=== PATIENT | female | born 1960 | race Caucasian/White ===

== ENCOUNTER 2016-12-28 15:12 | Emergency (ER) | payer BC ==
--- NOTE | 2016-12-28 15:14 | UC ---
Cardiac HPI - HPI Summary HPI Summary: 56 YEAR OLD FEMALE PRESENTS WITH COMPLAINS OF LEFT SIDED DEEP CHEST PAIN. - History of Current Complaint Stated Complaint: CHEST PAIN Time Seen by Provider: 12/28/16 15:13 Hx Obtained From: Patient Onset/Duration: Sudden Onset Initial Severity: Moderate Current Severity: Moderate Chest Pain Location: Left Anterior Aggravating: Rest - Allergy/Home Medications Allergies/Adverse Reactions: Allergies Allergy/AdvReac Type Severity Reaction Status Date / Time Penicillins Allergy Rash And Verified 12/28/16 15:29 Itching Sulfamethoxazole Allergy Rash And Verified 12/28/16 15:28 w/Trimethoprim Itching [From Bactrim] Home Medications: Home Medications NK [No Home Medications Reported] 12/28/16 [History Confirmed 12/28/16] PMH/Surg Hx/FS Hx/Imm Hx Previously Healthy: Yes - Surgical History Surgical History: Yes Surgery Procedure, Year, and Place: EYE SURGERY A CHILD; [facility] - Family History Known Family History: Positive: None Review of Systems Constitutional: Negative Skin: Negative Eyes: Negative ENT: Negative Respiratory: Negative Cardiovascular: Chest Pain Gastrointestinal: Negative Genitourinary: Negative Motor: Negative Neurovascular: Negative Musculoskeletal: Negative Neurological: Negative Psychological: Negative All Other Systems Reviewed And Are Negative: Yes Physical Exam Triage Information Reviewed: Yes Eye Exam: Normal ENT Exam: Normal Dental Exam: Normal Neck exam: Normal Neck: Positive: 1 Respiratory Exam: Normal Cardiovascular Exam: Normal Abdominal Exam: Normal Musculoskeletal Exam: Normal Neurological Exam: Normal Psychological Exam: Normal Skin Exam: Normal - Clinical Impression Provider Diagnoses: LEFT SIDED CHEST PAIN Discharge - Discharge Plan Condition: Stable Disposition: AGAINST MEDICAL ADVICE Referrals: Mono Beckett MD [Primary Care Provider] -
[2016-12-28] MEDS ORDERED: Aspirin Low Dose CHEW TAB* 81 MG PO ONE (15:21)
[2016-12-28 15:33] VITALS: BP 139/78
== END 2016-12-28 15:43 | disposition left against medical advice (07) ==
LOC: UCEAST 15:12
DX: R07.9 Chest pain, unspecified (principal); Z88.3 Allergy status to other anti-infective agents; Z88.0 Allergy status to penicillin
CPT/HCPCS: 93005; 99212; A9270-GY; G0463

== ENCOUNTER 2016-12-28 16:18 | Emergency (ER) | payer BC ==
[2016-12-28] MEDS ORDERED: NS 0.9% 1000 ML* 1,000 ML IV SCH (18:00)
--- NOTE | 2016-12-28 18:21 | RAD ---
Indication: Chest pain. Single frontal view of the chest performed at 1804 hours was reviewed. No prior study is available for comparison. No mediastinal shift is noted. Heart is of normal size and configuration. Lung holliday appear clear. IMPRESSION: NO ACTIVE CARDIOPULMONARY DISEASE IS NOTED.
[2016-12-28 18:29] LABS: Hematocrit 38 % (35-47); Hemoglobin 12.6 g/dl (12.0-16.0); Mean Corpuscular HGB Conc 33 g/dl (31-36); Mean Corpuscular Hemoglobin 30 pg (27-31); Mean Corpuscular Volume 90 fL (80-97); Mean Platelet Volume 8 um3 (7.4-10.4); Red Blood Count 4.26 10^6/ul (4.0-5.4); Red Cell Distribution Width 14 % (10.5-15); White Blood Count 5.1 10^3/ul (3.5-10.8)
[2016-12-28 18:50] LABS: Albumin 4.3 g/dL (3.2-5.2); BUN/Creatinine Ratio 22.8 (8-20); C Reactive Protein 1.27 mg/L (< 5.00); Calcium 9.9 mg/dL (8.6-10.3); EGFR African American 96.1 (>60); EGFR Non-African American 74.7 (>60); Globulin 3.1 g/dL (2-4); Magnesium 2.1 mg/dL (1.9-2.7); Total Bilirubin 0.4 mg/dL (0.2-1.0); Total Protein 7.4 g/dL (6.4-8.9)
[2016-12-28 19:14] LABS: TSH (Thyroid Stimulating Horm) 1.32 mcIU/mL (0.34-5.60)
[2016-12-28] MEDS ORDERED: Aspirin TAB* 325 MG PO ONE (19:27)
[2016-12-28] MEDS ORDERED: Nitroglycerin 0.1 mg/Hr PATCH* (2.5 MG) TRANSDERM ONE (19:27)
[2016-12-28] MEDS ORDERED: Heparin VIAL(*) 5000 UNITS/ML VIAL (FIVE THOUSAND) SUBCUT SCH (22:00)
[2016-12-28 22:13] VITALS: BP 127/78
--- NOTE | 2016-12-28 22:35 | ED ---
Yue Rivers Rebecca, scribed for Trevor Verduzco on 12/28/16 at 1926 . HPI Chest Pain - HPI Summary HPI Summary: Pt is a 56 y/o F who presents to ED c/o CP. Pain has been intermittent since onset 3 weeks ago with the most recent episode starting this morning at 0330, waking her up from sleep. When pain is present it lasts for multiple hours and is characterized as "sometimes sharp, sometimes full." Pain is in the left anterior region and is currently mild, ranked 3/10. Sx unchanged by ambulation. Additionally c/o dizziness when pain is present. Denies N/V, SOB. Pt reports a few years ago she was doing heavy lifting of fruits which caused a similar episode of symptoms. No PMHx HTN, DM. FHx CAD. - History of Current Complaint Chief Complaint: EDChestPainROMI Time Seen by Provider: 12/28/16 19:12 Hx Obtained From: Patient Onset/Duration: Still Present Time of Onset: 03:30 - Most recent episode Timing: Intermittent, Lasting Hours Current Severity: Mild Pain Intensity: 3 Pain Scale Used: 0-10 Numeric Chest Pain Location: Left Anterior Character: Dull/Aching, Sharp/Stabbing Associated Signs and Symptoms: Positive: Dizziness. Negative: Shortness of Breath, Nausea, Vomiting Related History: Similar Episode/Dx as: - Prior simlar episode during heavy lifting - Allergy/Home Medications Allergies/Adverse Reactions: Allergies Allergy/AdvReac Type Severity Reaction Status Date / Time Penicillins Allergy Rash And Verified 12/28/16 15:29 Itching Sulfamethoxazole Allergy Rash And Verified 12/28/16 15:28 w/Trimethoprim Itching [From Bactrim] PMH/Surg Hx/FS Hx/Imm Hx Endocrine/Hematology History: Denies: Hx Diabetes Cardiovascular History: Denies: Hx Hypertension Musculoskeletal History: Denies: Hx Osteoporosis - Cancer History Hx Chemotherapy: No Hx Radiation Therapy: No - Surgical History Surgery Procedure, Year, and Place: EYE SURGERY A CHILD; [facility] Infectious Disease History: Denies: Traveled Outside the [place] in Last 30 Days - Family History Known Family History: Positive: Cardiac Disease - Social History Alcohol Use: Occasionally Substance Use Type: Reports: None Smoking Status (MU): Never Smoked Tobacco Review of Systems Positive: Chest Pain Negative: Shortness Of Breath Negative: Vomiting, Nausea Neurological: Other - Dizziness when pain is present All Other Systems Reviewed And Are Negative: Yes Physical Exam - Summary Physical Exam Summary: Appearance: Well appearing, no pain distress Skin: warm, dry, reflects adequate perfusion Head/face: normal Eyes: EOMI, SHAWN ENT: normal Neck: supple, nontender Respiratory: CTA, breath sounds present Cardiovascular: RRR, pulses symmetrical Abdomen: nontender, soft Bowel: present Musculoskeletal: normal, strength/ROM intact Neuro: normal, sensory motor intact, A&Ox3 Triage Information Reviewed: Yes Vital Signs On Initial Exam: Initial Vitals Temp Pulse Resp BP Pulse Ox 97.8 F 65 16 108/52 98 12/28/16 16:22 12/28/16 16:22 12/28/16 16:22 12/28/16 16:22 12/28/16 16:22 Vital Signs Reviewed: Yes - [place] Coma Scale Coma Scale Total: 15 Diagnostics - Vital Signs Vital Signs Temp Pulse Resp BP Pulse Ox 12/28/16 17:46 97.4 F 61 12 141/109 98 12/28/16 16:22 97.8 F 65 16 108/52 98 - Laboratory Lab Results: Lab Results 12/28/16 12/28/16 12/28/16 Range/Units 18:19 18:19 18:19 WBC (3.5-10.8) 10^3/ul RBC (4.0-5.4) 10^6/ul Hgb (12.0-16.0) g/dl Hct (35-47) % MCV (80-97) fL MCH (27-31) pg MCHC (31-36) g/dl RDW (10.5-15) % Plt Count (150-450) 10^3/ul MPV (7.4-10.4) um3 Neut % (Auto) (38-83) % Lymph % (Auto) (25-47) % [place] % (Auto) (1-9) % Eos % (Auto) (0-6) % Baso % (Auto) (0-2) % Absolute Neuts (auto) (1.5-7.7) 10^3/ul Absolute Lymphs (auto) (1.0-4.8) 10^3/ul Absolute Monos (auto) (0-0.8) 10^3/ul Absolute Eos (auto) (0-0.6) 10^3/ul Absolute Basos (auto) (0-0.2) 10^3/ul Absolute Nucleated RBC 10^3/ul Nucleated RBC % INR (Anticoag Therapy) 0.83 L (0.89-1.11) APTT 24.3 L (26.0-36.3) seconds D-Dimer, Quantitative < 200 (Less Than 230) ng/mL Sodium Pending Potassium 4.0 (3.5-5.0) mmol/L Chloride 104 (101-111) mmol/L Carbon Dioxide 28 (22-32) mmol/L Anion Gap Pending BUN 18 (6-24) mg/dL Creatinine 0.79 (0.51-0.95) mg/dL Est GFR ( Amer) 96.1 (>60) Est GFR (Non-Af Amer) 74.7 (>60) BUN/Creatinine Ratio 22.8 H (8-20) Glucose 90 (70-100) mg/dL Lactic Acid 0.8 (0.5-2.0) mmol/L Calcium 9.9 (8.6-10.3) mg/dL Magnesium 2.1 (1.9-2.7) mg/dL Total Bilirubin 0.40 (0.2-1.0) mg/dL AST 19 (13-39) U/L ALT 15 (7-52) U/L Alkaline Phosphatase 57 (34-104) U/L Total Creatine Kinase 76 (10-223) U/L CK-MB (CK-2) 1.1 (0.6-6.3) ng/mL Troponin I 0.00 (<0.04) ng/mL C-Reactive Protein 1.27 (< 5.00) mg/L B-Natriuretic Peptide ( - 100) pg/mL Total Protein 7.4 (6.4-8.9) g/dL Albumin 4.3 (3.2-5.2) g/dL Globulin 3.1 (2-4) g/dL Albumin/Globulin Ratio 1.4 (1-3) Lipase 56 (11.0-82.0) U/L TSH 1.32 (0.34-5.60) mcIU/mL 12/28/16 12/28/16 Range/Units 18:19 18:19 WBC 5.1 (3.5-10.8) 10^3/ul RBC 4.26 (4.0-5.4) 10^6/ul Hgb 12.6 (12.0-16.0) g/dl Hct 38 (35-47) % MCV 90 (80-97) fL MCH 30 (27-31) pg MCHC 33 (31-36) g/dl RDW 14 (10.5-15) % Plt Count 270 (150-450) 10^3/ul MPV 8 (7.4-10.4) um3 Neut % (Auto) 55.4 (38-83) % Lymph % (Auto) 33.1 (25-47) % [place] % (Auto) 8.0 (1-9) % Eos % (Auto) 3.0 (0-6) % Baso % (Auto) 0.5 (0-2) % Absolute Neuts (auto) 2.8 (1.5-7.7) 10^3/ul Absolute Lymphs (auto) 1.7 (1.0-4.8) 10^3/ul Absolute Monos (auto) 0.4 (0-0.8) 10^3/ul Absolute Eos (auto) 0.2 (0-0.6) 10^3/ul Absolute Basos (auto) 0 (0-0.2) 10^3/ul Absolute Nucleated RBC 0 10^3/ul Nucleated RBC % 0.1 INR (Anticoag Therapy) (0.89-1.11) APTT (26.0-36.3) seconds D-Dimer, Quantitative (Less Than 230) ng/mL Sodium Potassium (3.5-5.0) mmol/L Chloride (101-111) mmol/L Carbon Dioxide (22-32) mmol/L Anion Gap BUN (6-24) mg/dL Creatinine (0.51-0.95) mg/dL Est GFR ( Amer) (>60) Est GFR (Non-Af Amer) (>60) BUN/Creatinine Ratio (8-20) Glucose (70-100) mg/dL Lactic Acid (0.5-2.0) mmol/L Calcium (8.6-10.3) mg/dL Magnesium (1.9-2.7) mg/dL Total Bilirubin (0.2-1.0) mg/dL AST (13-39) U/L ALT (7-52) U/L Alkaline Phosphatase (34-104) U/L Total Creatine Kinase (10-223) U/L CK-MB (CK-2) (0.6-6.3) ng/mL Troponin I (<0.04) ng/mL C-Reactive Protein (< 5.00) mg/L B-Natriuretic Peptide 26 ( - 100) pg/mL Total Protein (6.4-8.9) g/dL Albumin (3.2-5.2) g/dL Globulin (2-4) g/dL Albumin/Globulin Ratio (1-3) Lipase (11.0-82.0) U/L TSH (0.34-5.60) mcIU/mL Result Diagrams: 12/28/16 18:19 12/28/16 18:19 Lab Statement: Any lab studies that have been ordered have been reviewed, and results considered in the medical decision making process. - Radiology CXR Xray Interpretation: No Acute Changes - NO ACTIVE CARDIOPULMONARY DISEASE IS NOTED. ED physician reviewed this radiology report and agrees. Radiology Interpretation Completed By: Radiologist - EKG 1631 Cardiac Rate: NL - 61 bpm EKG Rhythm: Sinus Rhythm EKG Interpretation: RBBB Chest Pain Course/Dx - Course Assessment/Plan: Pt is a 56 y/o F who presents to ED c/o intermittent CP for 3 weeks with the most recent episode starting this morning at 0330, waking her up from sleep. When pain is present it lasts for multiple hours and is characterized as "sometimes sharp, sometimes full." Pain is in the left anterior region and is currently mild, ranked 3/10. Sx unchanged by ambulation. Additionally c/o dizziness when pain is present. Denies N/V, SOB. Pt reports a few years ago she was doing heavy lifting of fruits which caused a similar episode of symptoms. No PMHx HTN, DM. FHx CAD. CXR reveals no acute findings. EKG reveals sinus rhythm with RBBB. Blood work was done with a troponin of 0.00 and D-Dimer <200. Discussed care of pt with Dr. Cristina who accepts pt. Dr. Cristina evaluated the pt in the ED during she she stated that she does not want to be admitted. He recommended a repeat troponin. Repeat troponin is 0.00. She will be D/C to home with Dx of chest pain. She understands and agrees. - Diagnoses Provider Diagnoses: Chest pain - Provider Notifications Discussed Care Of Patient With: Guillermo Cristina Time Discussed With Above Provider: 20:07 Instructed by Provider To: Other - Accepts pt for admission. Dr. Cristina evaluated the pt in the ED during she she stated that she does not want to be admitted. He recommended a repeat troponin. Discharge - Discharge Plan Condition: Stable Disposition: HOME The documentation as recorded by the Yue coleman Rebecca accurately reflects the service I personally performed and the decisions made by , Trevor Verduzco.
--- NOTE | 2016-12-28 23:45 | CONS ---
CC: Dr. Mono Beckett * CONSULTATION REPORT: DATE OF CONSULT: 12/28/16 - EMERGENCY DEPT CHIEF COMPLAINT: Chest pain. HISTORY OF PRESENT ILLNESS: The patient is a 56-year-old woman who says the last couple of days, she has been experiencing a dull, sharp pain on the left side of her chest. That seems to happen more at night. She will wake up and have it. She does not think it wakes her up though. It is about 4 to 5/10 in severity. It does not radiate. It is not worse with cough or movement. She has no associated nausea or vomiting. No shortness of breath. No sweatiness or clamminess. She does note that she does do yoga, has an Airbnb, has been carrying some heavy item such as laundry lately. She also notes that recently she was in [place] this past week doing a long bike trip and had no issues at all. She did take an aspirin, which seemed to help the pain. She is not in pain right now. She did have similar pain 11 years ago and that happened after lifting melons and crates. It was a similar pain at that time. PAST MEDICAL HISTORY: Significant for only osteopenia. MEDICATIONS: She is currently on no medications. ALLERGIES: To PENICILLIN and BACTRIM which both gives her hives. FAMILY HISTORY: Mother is alive at 85, has had CHF, that started about 5 years ago. Father is alive at 86, has had CHF since he has been about 65. SOCIAL HISTORY: Quit tobacco many years ago. Only smoked for 3 years when she was young. Social alcohol. No recreational drug use. 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 She is . Her , Jeyson Contreras, is her healthcare proxy. She has got 1 child. REVIEW OF SYSTEMS: A 14-point review of systems was completed with the patient , all pertinent positives and negatives are in the history of present illness; otherwise it is negative. PHYSICAL EXAM: Pleasant woman, lying in bed, in no acute distress. Vital Signs : Temperature 97.4 degrees, heart rate 61 beats per minute, respiratory rate 12 breaths per minute, pulse ox 98%, and blood pressure 141/109. This was checked and it was 108/52. HEENT: Normocephalic, atraumatic. Pupils equal, round, and reactive to light. Moist mucous membranes. Neck: Supple. No JVD, bruits , palpable thyroid or lymphadenopathy. Chest: Clear to auscultation and percussion bilaterally. Cardiovascular Exam: S1 and S2 appreciated. Regular rate and rhythm. Abdominal Exam: Positive bowel sounds in all 4 quadrants. Soft, nontender, and nondistended. No hepatosplenomegaly. Extremities: No cyanosis, clubbing, or edema. +2 peripheral pulses bilaterally. Neuro: Alert , awake, and oriented x3, moves all extremities. Skin: No rashes or abnormalities. DIAGNOSTIC STUDIES/LAB DATA: Hemoglobin 12.6, hematocrit 38, platelets are 270. Sodium is 138, potassium 4.0, chloride 104, CO2 28, BUN 18, creatinine 0.79, and glucose is 90. Her first troponin is 0.00. D-dimer is less than 200. INR is 0.83. Chest x-ray shows no active cardiopulmonary disease is noted. EKG shows right bundle branch block pattern, normal sinus rhythm at 61 beats per minute. ASSESSMENT AND PLAN: Chest pain. The patient does have a right bundle branch block, but her story is very atypical. She has little to no risk factors and it has been going on for over a few days. Her troponin is also negative. I will repeat her troponin. The patient is anxious to go home. I think she can safely go home and have a stress test as an outpatient, which seems reasonable. I have ordered an outpatient stress test through our system. She will call the hospital tomorrow to get it scheduled. The patient will return to the ED if she develops worsening symptoms. I have contacted the ED doctor and he will follow the troponin If it is negative, she can safely go home. TIME SPENT: Over 75 minutes were spent on this consult, more than 40 minutes was spent in direct [id number] contact with the patient in evaluation, physical exam, counselling, and coordination of care. Thank you very much for this consult. [id number]/MONICA #: [id number] DAVON
== END 2016-12-28 22:25 | disposition home or self-care (01) ==
LOC: ED 16:18 → UNDOADMOB 20:38 → MEDTELE 20:38
DX: R07.9 Chest pain, unspecified (principal); Z88.0 Allergy status to penicillin; Z88.2 Allergy status to sulfonamides; M85.80 Other specified disorders of bone density and structure, unspecified site; Z87.891 Personal history of nicotine dependence; I45.10 Unspecified right bundle-branch block
CPT/HCPCS: 36415; 71010; 80053; 82550; 82553; 83605; 83690; 83735; 83880; 84443; 84484; 85025; 85379; 85610; 85730; 86140; 93005; 96360; 99284

== ENCOUNTER 2016-12-29 16:29 | Observation (INO) | payer BC ==
[2016-12-29] MEDS ORDERED: Aspirin Low Dose CHEW TAB* 81 MG PO ONE (17:33)
[2016-12-29] MEDS ORDERED: Nitroglycerin TAB 0.4 MG* 0.4 MG TAB SL ONE (18:06)
--- NOTE | 2016-12-29 18:06 | RAD ---
Indication: Chest pain. Single frontal view of the chest performed at 1738 hours was reviewed. Comparison is made with previous exam dated December 28, 2016. No mediastinal shift is noted. Heart is of normal size and configuration. Lung holliday appear clear. IMPRESSION: NO ACTIVE CARDIOPULMONARY DISEASE IS NOTED.
[2016-12-29 18:21] LABS: Hematocrit 38 % (35-47); Hemoglobin 12.6 g/dl (12.0-16.0); Mean Corpuscular HGB Conc 33 g/dl (31-36); Mean Corpuscular Hemoglobin 30 pg (27-31); Mean Corpuscular Volume 90 fL (80-97); Mean Platelet Volume 8 um3 (7.4-10.4); Red Blood Count 4.24 10^6/ul (4.0-5.4); Red Cell Distribution Width 13 % (10.5-15); White Blood Count 4.7 10^3/ul (3.5-10.8)
[2016-12-29 18:36] LABS: Albumin 4.3 g/dL (3.2-5.2); BUN/Creatinine Ratio 20.6 (8-20); Calcium 9.2 mg/dL (8.6-10.3); EGFR African American 114.3 (>60); EGFR Non-African American 88.9 (>60); Total Bilirubin 0.3 mg/dL (0.2-1.0); Total Protein 7.3 g/dL (6.4-8.9)
[2016-12-29] MEDS: Heparin VIAL(*) 5000 UNITS/ML VIAL (FIVE THOUSAND) SUBCUT SCH (22:24)
--- NOTE | 2016-12-29 22:39 | HP ---
HISTORY AND PHYSICAL: ADDENDUM: As noted, the patient's laboratory results are virtually the same as the day before. Her troponin again was 0.00. Since they have not changed in over 2 days, I do not think they need to be cycled. The patient will be scheduled for nuclear stress test in the morning and admitted to the CD unit. If it is within normal limits, she can likely go home safely as soon as the test results are in. I have also ordered a lipid profile. TIME SPENT: Over 60 minutes were spent on this H and P, more than 35 minutes of which was spent in direct rdkt-[id number]-zota contact with the patient evaluation, physical exam, counseling, and coordination of care. [id number]/CPS #: [id number] MTDD
--- NOTE | 2016-12-29 22:39 | HP ---
CONTINUATION ADDENDUM NOW INCLUDED ON THIS REPORT CC: Mono Beckett MD * HISTORY AND PHYSICAL: DATE OF ADMISSION: 12/29/16 HISTORY OF PRESENT ILLNESS: The patient was seen in the ED yesterday and was consulted on. An outpatient stress test was ordered for the patient and she called today to follow up. However, for some reason, they said that they either did not have the order or her insurance would not cover it, which was concerning. It is unclear if anything fell through the cracks. Nevertheless, she called her PCP and said she is going back to the ED and therefore she is being admitted to have a stress test in the morning. Everything else has stayed the same. She feels a little bit weaker, but she has a chest pain on and off and everything is identical to the consult we did yesterday. In fact her labs CONTINUATION ADDENDUM: As noted, the patient's laboratory results are virtually the same as the day before. Her troponin again was 0.00. Since they have not changed in over 2 days, I do not think they need to be cycled. The patient will be scheduled for nuclear stress test in the morning and admitted to the CD unit. If it is within normal limits, she can likely go home safely as soon as the test results are in. I have also ordered a lipid profile. TIME SPENT: Over 60 minutes were spent on this H and P, more than 35 minutes of which was spent in direct vxrm-ga-xemo contact with the patient evaluation, physical exam, counseling, and coordination of care. [id number] #: [id number]/CPS #: [id number] [facility]
[2016-12-30] MEDS: Heparin VIAL(*) 5000 UNITS/ML VIAL (FIVE THOUSAND) SUBCUT SCH (05:43)
[2016-12-30 06:02] LABS: HDL Cholesterol 83.5 mg/dL
[2016-12-30 12:07] VITALS: BP 128/71
[2016-12-30] MEDS ORDERED: Acetaminophen TAB* 325 MG PO PRN (12:27)
--- NOTE | 2016-12-30 13:08 | RAD ---
Edited for charges. INDICATION: Chest pain. Family history of heart disease. RIGHT bundle branch block. COMPARISON: No relevant prior exams available on the [facility] [place] for comparison. TECHNIQUE: 10.350 mCi of Tc-99m Myoview were administered IV. SPECT images of the heart were obtained. Later on the same day. Under the direction of Dr. Ventura, an exercise stress test was performed. The patient achieved a peak heart rate of 153 bpm, 94 % of the age- predicted maximum. Subsequently, the patient was given an IV injection of 25.400 mCi Tc- 99m Myoview. SPECT images of the heart were obtained and a gated wall motion study was performed. FINDINGS: Gated wall motion images were obtained at stress and demonstrate wall motion to be within normal limits. The calculated left ventricular ejection fraction is 67 % at stress. Estimated LEFT ventricular end diastolic volume is 91 mL. TID 1.0. Mild photopenia reflecting RV insertion at the anteroseptal junction. Based on review of the attenuation corrected and non corrected images the distribution of radiopharmaceutical within the myocardium on the stress and rest images is within normal limits. No fixed or reversible regions of hypoperfusion evident. IMPRESSION: 1. No evidence for stress induced myocardial ischemia or presence of an infarct. 2. Normal left ventricular wall motion and ejection fraction. ASSESSMENT: LOW RISK. Based on imaging criteria from ACC/AHA 2002 Guideline Update for the Management of Patients With Chronic Stable Angina Table 23. Noninvasive Risk Stratification. MTDD
--- NOTE | 2016-12-30 13:58 | PN ---
Subjective Date of Service: 12/30/16 Interval History: Patient seen and examined at bedside. Denies fever, chills, shortness of breath , chest discomfort, N/V/D. Pt states that she has been waking up at night and noticing chest discomfort, she doesn't feel that this is associated with any activity. She reports gets getting back from a 4 day bicycle trip. She also reports occasional dizziness when she has the chest discomfort. She has had intermittent chest discomfort for about 3 weeks. She denies any ingestion of foods that may have been causing indigestion. There is minimal reproduction of pain with palpation to the lower sternum and left lower sternal border. Tele: Sinus rhythm, rate 60's. Family History: Unchanged from Admission Social History: Unchanged from Admission Past Medical History: Unchanged from Admission Objective Active Medications: Acetaminophen (Tylenol Tab*) 650 mg PO Q4H PRN Reason: FEVER/PAIN Heparin Sodium (Porcine) (Heparin Vial(*)) 5,000 units SUBCUT Q8HR PAMELA Vital Signs 12/29/16 12/29/16 12/29/16 20:15 20:30 20:45 Temperature Pulse Rate 64 57 59 Respiratory 21 16 19 Rate Blood Pressure 121/68 113/69 118/73 (mmHg) O2 Sat by Pulse 98 98 98 Oximetry 12/29/16 12/29/16 12/30/16 21:11 23:26 02:36 Temperature 98.0 F 97.8 F 98.0 F Pulse Rate 64 61 58 Respiratory 18 16 16 Rate Blood Pressure 125/78 114/67 119/77 (mmHg) O2 Sat by Pulse 99 99 100 Oximetry 12/30/16 12/30/16 08:01 11:22 Temperature 97.9 F 98.3 F Pulse Rate 57 65 Respiratory 16 16 Rate Blood Pressure 129/72 128/71 (mmHg) O2 Sat by Pulse 99 99 Oximetry Oxygen Devices in Use Now: None Appearance: NAD, sitting up in bed Eyes: PERRLA Ears/Nose/Mouth/Throat: Mucous Membranes Moist Respiratory: Symmetrical Chest Expansion and Respiratory Effort, Clear to Auscultation Cardiovascular: NL Sounds; No Murmurs; No JVD, RRR Abdominal: NL Sounds; No Tenderness; No Distention Extremities: No Edema Skin: No Rash or Ulcers Neurological: Alert and Oriented x 3, NL Muscle Strength and Tone Lines/Tubes/Other Access: Clean, Dry and Intact Peripheral IV - site benign Nutrition: Taking PO's Result Diagrams: 12/29/16 18:02 12/29/16 18:02 Additional Lab and Data: Lab Results Assess/Plan/Problems-Billing Assessment: Ms. Contreras is a 56 yo female with no significant PMH who presented to the emergency room for intermittent chest discomfort for 3 week, requesting a cardiac stress test. - Patient Problems (1) Chest pain Code(s): R07.9 - CHEST PAIN, UNSPECIFIED SNOMED Code(s): 66186509 Comment: - No chest pain today. Some pain is reproducible with palpation - Troponin 0.00 x3 - Lipid panel WNL - Nuclear stress test low risk (2) DVT prophylaxis Code(s): CVK7842 - SNOMED Code(s): 742267494 (3) Full code status Code(s): Z78.9 - OTHER SPECIFIED HEALTH STATUS SNOMED Code(s): 433793418 Status and Disposition: OBV. Stable for discharge to home today.
--- NOTE | 2016-12-31 06:16 | DS ---
CC: Mono Beckett MD * DISCHARGE SUMMARY: DATE OF ADMISSION: 12/29/16 DATE OF DISCHARGE: 12/30/16 ATTENDING PHYSICIAN: Anthony Perez MD * (DICTATED BY WANDA FERNANDES NP) PRIMARY DIAGNOSIS: Chest pain, suspected noncardiac in nature. STUDIES WHILE IN THE HOSPITAL: Chest x-ray on 12/29/16. Radiologist Impression : No active cardiopulmonary disease is noted. Nuclear exercise stress test on 12/30/16. Fuel Attendant's observation: Chest pressure unchanged. Resting EKG abnormal with right bundle branch block. Less than 1-mm ST depression. Fuel Attendant's conclusion: Nondiagnostic maximal adequate stress with noncardiac chest pain. Nuclear portion to be reported separately by Radiology score EKG portion of exercise stress test. Radiologist's Impression: No evidence for a stress induced myocardial ischemia or presence of an infarct. Normal left ventricular wall motion ejection fraction. Assessment: Low risk. DISCHARGE MEDICATIONS: None. HISTORY OF PRESENT ILLNESS: Ms. Contreras is a 56-year-old female with no significant past medical history who presented to the emergency room on December 28 and was seen in consultation by Dr. Guillermo Cristina. The patient initially presented experiencing a dull, sharp, chest pain on the left side. It was felt that it happened more frequently at night, not waking her up, but she often woke up with it. There was no radiation in the pain. There was nothing that aggravated the symptoms. There was no associated nausea, vomiting, shortness of breath, diaphoresis, or clamminess. 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 The patient was also recently in [place] on a 4-day bicycle trip and had no issues. The patient had taken an aspirin, which seemed to help with her pain. The patient had had similar pain approximately 11 years ago that occurred after lifting melons and heavy crates. The patient while in the emergency room on the had a troponin of 0.00. She had an EKG showing a right bundle branch block. It was felt that her story was atypical. She had little to no risk factors for coronary artery disease. She had a repeat troponin, it was recommended that she go home and have an outpatient stress test if her repeat troponin was negative. The patient returned to the emergency room on December 29 after she received a call stating that there was an issue with an outpatient stress test, either it had no been ordered or that her insurance would not cover it, she felt was concerning. The patient's primary care provider asked her to go back to the emergency room to be admitted for a stress test in the morning. While in the hospital, the patient had troponin that were flat at 0.00. She had lipid panel that was within normal limits. The patient underwent a nuclear exercise stress test today that showed a low risk. I suspect the patient's chest discomfort is muscular in nature as there is some reproduction of pain with palpation. Ms. Contreras is stable for discharge to home today. Vital signs are as follows : Temperature 98.3, heart rate 65, respiratory rate 16, O2 sat 99% on room air, blood pressure 128/71. DISCHARGE PLAN: Ms. Contreras will be discharged to home. ACTIVITY: As tolerated. DIET: Regular diet. FOLLOWUP: She has been instructed to follow up with her primary care provider, Dr. Mono Beckett. Dr. Beckett's office will call the patient to set up a follow- up appointment. The patient has been instructed to return to the emergency room for any chest pain or shortness of breath. This is a summarized report of a complex medical history and hospital stay. For further details please see the entire medical record. TIME SPENT: Time for this discharge was approximately 50 minutes, greater than half of that was spent with the patient and her discussing discharge plans and instructions. CONDITION ON DISCHARGE: Stable. WANDA GARCES, JOY [id number]/[facility] #: [id number] DAVON
--- NOTE | 2016-12-31 21:38 | ED ---
Tha Rivers Benjamin, scribed for Silviano Fernandes MD on 12/29/16 at 1838 . HPI Chest Pain - HPI Summary HPI Summary: 56yo female c/o chest pressure and racing heart rate. Pt came in as her symptoms bothered her. Pt was seen here last night for the exact same symptoms and was dxed with RBBB. Pt was advised to follow up with a stress test. Pt also reports feeling fatigued. Pain is now 4/10 scale. FHx of CAD, CHF, and KS. No FHX of KS before 55. Palpation or pressure to the sternum doesn't bother her CP. Pt denies nausea, SOB, or abdominal pain. - History of Current Complaint Chief Complaint: EDChestPainROMI Time Seen by Provider: 12/29/16 17:33 Hx Obtained From: Patient Pain Intensity: 0 - Allergy/Home Medications Allergies/Adverse Reactions: Allergies Allergy/AdvReac Type Severity Reaction Status Date / Time Penicillins Allergy Rash And Verified 12/28/16 15:29 Itching Sulfamethoxazole Allergy Rash And Verified 12/28/16 15:28 w/Trimethoprim Itching [From Bactrim] PMH/Surg Hx/FS Hx/Imm Hx Endocrine/Hematology History: Denies: Hx Diabetes Cardiovascular History: Denies: Hx Hypertension Musculoskeletal History: Denies: Hx Osteoporosis - Cancer History Hx Chemotherapy: No Hx Radiation Therapy: No - Surgical History Surgery Procedure, Year, and Place: EYE SURGERY A CHILD; [facility] Infectious Disease History: No Infectious Disease History: Reports: Traveled Outside the [place] in Last 30 Days - j[place] - Family History Known Family History: Positive: None, Cardiac Disease - Social History Alcohol Use: Occasionally Substance Use Type: Reports: None Smoking Status (MU): Never Smoked Tobacco Review of Systems All Other Systems Reviewed And Are Negative: Yes Physical Exam Triage Information Reviewed: Yes Vital Signs On Initial Exam: Initial Vitals Temp Pulse Resp BP Pulse Ox 98.2 F 69 15 116/87 100 12/29/16 16:30 12/29/16 16:30 12/29/16 16:30 12/29/16 16:30 12/29/16 16:30 Vital Signs Reviewed: Yes Appearance: Positive: Well-Appearing, No Pain Distress, Well-Nourished Skin: Positive: Warm, Dry Head/Face: Positive: Normal Head/Face Inspection Eyes: Positive: EOMI, SHAWN, Conjunctiva Clear ENT: Positive: Normal ENT inspection, Hearing grossly normal Neck: Positive: Supple, Nontender, No Lymphadenopathy Respiratory/Lung Sounds: Positive: Clear to Auscultation, Breath Sounds Present. Negative: Rales, Rhonchi, Wheezes Cardiovascular: Positive: RRR, Pulses are Symmetrical in both Upper and Lower Extremities. Negative: Murmur, Leg Edema Left, Leg Edema Right Abdomen Description: Positive: Nontender, Soft. Negative: Distended, Guarding Bowel Sounds: Positive: Present Musculoskeletal: Positive: Strength/ROM Intact. Negative: Edema Left, Edema Right Neurological: Positive: Sensory/Motor Intact, Alert, Oriented to Person Place, Time Psychiatric: Positive: Affect/Mood Appropriate - [place] Coma Scale Coma Scale Total: 15 Diagnostics - Vital Signs Vital Signs Temp Pulse Resp BP Pulse Ox 12/29/16 17:30 63 15 110/71 97 12/29/16 17:27 98.2 F 62 16 110/71 98 12/29/16 17:24 65 21 99 12/29/16 17:23 125/76 12/29/16 16:30 98.2 F 69 15 116/87 100 - Laboratory Lab Results: Lab Results 12/29/16 Range/Units 18:02 WBC 4.7 (3.5-10.8) 10^3/ul RBC 4.24 (4.0-5.4) 10^6/ul Hgb 12.6 (12.0-16.0) g/dl Hct 38 (35-47) % MCV 90 (80-97) fL MCH 30 (27-31) pg MCHC 33 (31-36) g/dl RDW 13 (10.5-15) % Plt Count 262 (150-450) 10^3/ul MPV 8 (7.4-10.4) um3 Neut % (Auto) 60.8 (38-83) % Lymph % (Auto) 29.0 (25-47) % [place] % (Auto) 7.4 (1-9) % Eos % (Auto) 2.4 (0-6) % Baso % (Auto) 0.4 (0-2) % Absolute Neuts (auto) 2.9 (1.5-7.7) 10^3/ul Absolute Lymphs (auto) 1.4 (1.0-4.8) 10^3/ul Absolute Monos (auto) 0.3 (0-0.8) 10^3/ul Absolute Eos (auto) 0.1 (0-0.6) 10^3/ul Absolute Basos (auto) 0 (0-0.2) 10^3/ul Absolute Nucleated RBC 0 10^3/ul Nucleated RBC % 0 Result Diagrams: 12/29/16 18:02 12/29/16 18:02 Lab Statement: Any lab studies that have been ordered have been reviewed, and results considered in the medical decision making process. - Radiology CXR Xray Interpretation: No Acute Changes Radiology Interpretation Completed By: Radiologist - ED physician has reviewed this radiology report and agrees. Chest Pain Course/Dx - Course Course Of Treatment: Reviewed pts medication and allergy lists. Blood pressure noted. - Diagnoses Provider Diagnoses: Chest pain Discharge - Discharge Plan Condition: Stable Disposition: ADMITTED TO [facility] The documentation as recorded by the Tha coleman Benjamin accurately reflects the service I personally performed and the decisions made by Dom parnell Jerry, MD.
== END 2016-12-30 15:10 | disposition home or self-care (01) ==
LOC: ED 16:29 → MEDTELE 20:04
PROVIDERS: ADMIT Internal Medicine; ATTEND Internal Medicine
DX: R07.9 Chest pain, unspecified (principal); I45.10 Unspecified right bundle-branch block; R53.83 Other fatigue
CPT/HCPCS: 36415; 71010; 78452; 80053; 80061; 83605; 84484; 85025; 85379; 87040; 93005; 93017; 99284; A9270-GY; A9502; G0378